=== PATIENT | female | born 1975 | race Caucasian/White ===

== ENCOUNTER 2023-12-13 18:23 | Emergency (ER) | payer MEDICAID ==
[~2023-12-13] VITALS: Ht 162.6 cm; Wt 93.9 kg
[2023-12-13 18:39] VITALS: BP 123/77; PULSE 67; RESP 18; TEMP 97.8; O2SAT 98
[2023-12-13 19:21] LABS: BASOPHILS % (AUTO) 0.3 % (0.0-2.0); EOSINOPHILS # (AUTO) 0.1 K/uL (0-0.4); EOSINOPHILS % (AUTO) 1.2 % (0.0-4.0); HEMATOCRIT 41.1 % (36-48); HEMOGLOBIN 13.7 g/dL (12.0-16.0); LYMPHOCYTES # (AUTO) 3.6 K/uL (2.5-16.5); LYMPHOCYTES % (AUTO) 35.2 % (20.5-51.1); MEAN CORPUSCULAR HEMOGLOBIN 30 pg (27-31); MEAN CORPUSCULAR HGB CONC 33 g/dL (33-37); MEAN CORPUSCULAR VOLUME 91.1 fL (80-94); MONOCYTES # (AUTO) 0.3 K/uL (0.8-1.0); MONOCYTES % (AUTO) 2.9 % (1.7-9.3); NEUTROPHILS # (AUTO) 6.1 K/uL (1.8-7.7); NEUTROPHILS % (AUTO) 60.4 % (42.2-75.2); PLATELET COUNT (AUTO) 244 K/uL (140-450); RED BLOOD CELL COUNT(AUTO) 4.51 MIL/uL (4.20-5.40); WHITE BLOOD COUNT (AUTO) 10.2 K/uL (4.8-10.8)
[2023-12-13 19:28] LABS: ANION GAP 11.4 (8-16); CALCIUM 9.3 mg/dL (8.5-10.1); CARBON DIOXIDE 29.3 mmol/L (21-32); CREATININE 0.9 mg/dL (0.6-1.3); POTASSIUM 3.7 mmol/L (3.5-5.1)
[2023-12-13] MEDS: METOCLOPRAMIDE 10 MG/2 ML INJ VIAL IVP ONE (19:33)
[2023-12-13 19:34] LABS: BILIRUBIN,DIRECT 0.1 mg/dL (0.0-0.3); TOTAL BILIRUBIN 0.3 mg/dL (0.0-1.0); TOTAL PROTEIN, SERUM 8.7 g/dL (6.4-8.2)
[2023-12-13] MEDS: KETOROLAC 30 MG/ML VIAL IVP ONE (19:34)
[2023-12-13] MEDS: ACETAMINOPHEN EXTRA STRENGTH 500 MG TAB PO ONE (19:35)
[2023-12-13 19:54] VITALS: O2SAT 97
[2023-12-13 21:03] LABS: FLU A ANTIGEN negative (NEGATIVE); FLU B ANTIGEN NEGATIVE (NEGATIVE)
[2023-12-13] MEDS ORDERED: ONDA-188 PO (21:19)
[2023-12-13] MEDS: NACL 0.9% 1,000 ML IV ONE (21:20)
[2023-12-13 22:10] VITALS: BP 93/49; PULSE 69; RESP 16; O2SAT 97
== END 2023-12-13 22:10 | disposition home or self-care (01) ==
LOC: MED 18:23
DX: G43.909 Migraine, unspecified, not intractable, without status migrainosus (principal); Z20.822 Contact with and (suspected) exposure to COVID-19; R10.9 Unspecified abdominal pain; Z88.0 Allergy status to penicillin
CPT/HCPCS: 70450; 80048; 80076; 81025; 83690; 85025; 87426; 87804; 96361; 96374; 96375; 99285; J1885; J2765; J7030